=== PATIENT | female | born 2000 | race African-American/Black ===

== ENCOUNTER 2021-11-29 08:36 | Outpatient (CLI) | payer OTHER ==
[2021-11-29 19:08] LABS: SARS-CoV-2 PCR by NAA Not Detected (NotDetected)
== END 2021-11-29 08:37 | disposition home or self-care (01) ==
LOC: CSHLAB 08:36
PROVIDERS: ATTEND Family Medicine
DX: Z20.822 Contact with and (suspected) exposure to COVID-19 (principal)
CPT/HCPCS: U0003; U0005

== ENCOUNTER 2021-12-03 13:23 | Inpatient (IN) | payer OTHER ==
[2021-12-04 00:24] VITALS: BMI 32.4
[2021-12-04] MEDS ORDERED: Misoprostol 200 MCG TAB PR PRN (00:58)
[2021-12-04] MEDS ORDERED: hydrALAZINE 20 MG/ML VIAL SLOW IVP PRN (00:58)
[2021-12-04] MEDS ORDERED: Lidocaine 1% (PF) 30 ML VIAL SC PRN (00:58)
[2021-12-04] MEDS ORDERED: Ondansetron PF 4 MG/2 ML Vial IVP PRN (00:58)
[2021-12-04] MEDS ORDERED: Diphenoxylate HCl/Atropine Tablet PO PRN (00:58)
[2021-12-04] MEDS ORDERED: Promethazine HCl 25 MG/ML VIAL IM PRN (00:58)
[2021-12-04] MEDS ORDERED: Carboprost 250 MCG/ML AMP IM PRN (00:58)
[2021-12-04] MEDS ORDERED: Methylergonovine 0.2 MG/ML VIAL IM PRN (00:58)
[2021-12-04] MEDS ORDERED: Ibuprofen 800 MG TAB PO PRN (00:58)
[2021-12-04] MEDS ORDERED: NS w/ Oxytocin 30 units 500 ML IV SCH (01:00)
[2021-12-04 01:55] LABS: Hemoglobin 12.2 g/dL (12.0-15.5); Mean Corpuscular HGB CONC 33.1 g/dL (32.0-36.0); Mean Corpuscular Hemoglobin 29.4 pg (27.0-33.0); Mean Corpuscular Volume 88.9 fl (81.6-98.3); Mean Platelet Volume 12.2 fl (7.4-10.4); Platelet Count 199 10x3/uL (150-450); RBC Distribution Width 14.6 % (11.5-14.5); Red Blood Cell (RBC) Count 4.15 10x6/uL (3.90-5.03); White Blood Cell (WBC) Count 12.4 10x3/uL (3.5-10.5)
[2021-12-04 02:17] LABS: Hep B Surf Ag Non-Reactive S/CO (NonReactive)
[2021-12-04] MEDS: Misoprostol 100 MCG TAB VAG SCH ×3 (02:21→10:55)
[2021-12-04 02:24] LABS: HBSAg Index 0.23 S/CO (0-0.99)
[2021-12-04 02:48] LABS: Syphilis Antibody Nonreactive (Nonreactive); Syphilis Antibody Index 0.19 S/CO (<1.00 Non-Reactive)
[2021-12-04] MEDS: NS w/ Oxytocin 30 units 500 ML IV SCH (16:17)
[2021-12-05] MEDS: Misoprostol 100 MCG TAB VAG SCH (11:06)
[2021-12-05] MEDS: Lactated Ringer's 1,000 ML IV SCH (19:27)
[2021-12-05] MEDS ORDERED: Butorphanol Tartrate 1 MG/ML VIAL SLOW IVP PRN (20:22)
[2021-12-05] MEDS: NS w/ Oxytocin 30 units 500 ML IV SCH (21:35)
[2021-12-06] MEDS: Lactated Ringer's 1,000 ML IV SCH ×4 (07:17→14:40)
[2021-12-06] MEDS ORDERED: ceFAZolin 2 GM/Dextrose 50 ML IVPB ONE (07:59)
[2021-12-06] MEDS ORDERED: Famotidine/PF 20 mg/2ml Vial SLOW IVP PRN (08:38)
[2021-12-06] MEDS ORDERED: Bicitra 30 ML UDCUP PO PRN (08:38)
[2021-12-06] MEDS ORDERED: ceFAZolin 2 GM/Dextrose 50 ML 2 GM in Premix Bag 1 BAG IVPB SCH (08:45)
[2021-12-06] MEDS ORDERED: ePHEDrine Sulfate 50 MG/10 ML VIAL ONE (09:22)
[2021-12-06] MEDS ORDERED: Morphine PF 10 MG/10 ML VIAL ONE (09:22)
[2021-12-06] MEDS ORDERED: PROPOFOL 20 ML ONE (09:23)
[2021-12-06] MEDS ORDERED: Succinylcholine 200 MG/10 ml SYRINGE FS ONE (09:23)
[2021-12-06] MEDS ORDERED: Oxytocin 10 UNITS/ML VIAL ONE ×2 (09:23→10:41)
[2021-12-06] MEDS ORDERED: Phenylephrine 10 MG/ML VIAL ONE (09:23)
[2021-12-06] MEDS ORDERED: Dexamethasone 4 mg/ml Vial ONE (09:23)
[2021-12-06] MEDS ORDERED: Ondansetron PF 4 MG/2 ML Vial ONE (09:23)
[2021-12-06] MEDS ORDERED: Ketorolac Tromethamine 30 MG/ML VIAL ONE (09:23)
[2021-12-06] MEDS ORDERED: Fentanyl 250 MCG/5 ML VIAL ONE (09:24)
[2021-12-06] MEDS ORDERED: Ondansetron HCl/PF 4 MG/2 ML Vial IVP PRN ×3 (11:12→14:48)
[2021-12-06] MEDS ORDERED: Meperidine HCl/PF 25 MG/ML VIAL SLOW IVP PRN ×2 (11:12→14:48)
[2021-12-06] MEDS ORDERED: Promethazine HCl 25 MG/ML VIAL IVPB PRN (11:12)
[2021-12-06] MEDS ORDERED: Promethazine HCl 25 MG/ML VIAL IM PRN ×2 (11:12→16:38)
[2021-12-06] MEDS ORDERED: Fentanyl 100 MCG/2 ML VIAL SLOW IVP PRN ×2 (11:12→14:48)
[2021-12-06] MEDS ORDERED: Ketorolac Tromethamine 30 MG/ML VIAL IVP SCH ×2 (11:15→15:00)
[2021-12-06] MEDS ORDERED: Bisacodyl 10 MG SUPP PR PRN (14:11)
[2021-12-06] MEDS ORDERED: Ondansetron PF 4 MG/2 ML Vial IVP PRN ×2 (14:11→16:38)
[2021-12-06] MEDS ORDERED: HYDROcodone/Acetaminophen 5/325 mg Tablet PO PRN ×2 (14:11)
[2021-12-06] MEDS ORDERED: Simethicone Chewable 80 MG TAB PO PRN (14:11)
[2021-12-06] MEDS ORDERED: Lanolin Ointment 7 GM TUBE TOP PRN (14:11)
[2021-12-06] MEDS ORDERED: Boostrix 0.5 ML (Tdap) VIAL IM ONE (14:11)
[2021-12-06] MEDS ORDERED: NS w/ Oxytocin 30 units 500 ML IV SCH (14:11)
[2021-12-06] MEDS ORDERED: hydrALAZINE 20 MG/ML VIAL SLOW IVP PRN (14:11)
[2021-12-06] MEDS ORDERED: Ibuprofen 800 MG TAB PO SCH (14:30)
[2021-12-06] MEDS: Misoprostol 100 MCG TAB VAG SCH ×2 (14:38→14:39)
[2021-12-06] MEDS ORDERED: Naloxone HCl 0.4 mg/ml Vial IV PRN (16:38)
[2021-12-06] MEDS ORDERED: diphenhydrAMINE 50 MG/ML VIAL IVP PRN (16:38)
[2021-12-06] MEDS ORDERED: Promethazine HCl 25 MG SUPP PR PRN (16:38)
[2021-12-06] MEDS ORDERED: Naloxone HCl 0.4 mg/ml Vial IVP PRN ×2 (16:38)
[2021-12-06] MEDS ORDERED: Hydrocerin (Eucerin) Cream 120 gm Jar TOP PRN (16:38)
[2021-12-06] MEDS ORDERED: Communication Order-Pharmacy FS SCH (16:45)
[2021-12-06] MEDS: Ketorolac Tromethamine 30 MG/ML VIAL IVP PRN (18:20)
[2021-12-06] MEDS: Docusate 100 MG CAP PO SCH (21:43)
[2021-12-06] MEDS: Ferrous Sulfate 325 MG TAB PO SCH (23:15)
[2021-12-07] MEDS: Ketorolac Tromethamine 30 MG/ML VIAL IVP PRN ×2 (00:21→08:47)
[2021-12-07 04:42] LABS: Hemoglobin 9.2 g/dL (12.0-15.5); Mean Corpuscular HGB CONC 33.1 g/dL (32.0-36.0); Mean Corpuscular Hemoglobin 29.8 pg (27.0-33.0); Mean Platelet Volume 11.6 fl (7.4-10.4); Platelet Count 158 10x3/uL (150-450); RBC Distribution Width 14.2 % (11.5-14.5); Red Blood Cell (RBC) Count 3.09 10x6/uL (3.90-5.03); White Blood Cell (WBC) Count 12.6 10x3/uL (3.5-10.5)
[2021-12-07] MEDS ORDERED: HYDROcodone/Acetaminophen 5/325 mg Tablet PO PRN ×2 (04:45)
[2021-12-07] MEDS: Prenatal Vitamin 1 TAB PO SCH (08:31)
[2021-12-07] MEDS: Ferrous Sulfate 325 MG TAB PO SCH ×2 (08:31→21:22)
[2021-12-07] MEDS: Docusate 100 MG CAP PO SCH ×2 (08:31→21:19)
[2021-12-07] MEDS: Ibuprofen 800 MG TAB PO SCH (21:19)
[2021-12-08] MEDS: Ibuprofen 800 MG TAB PO SCH (06:02)
[2021-12-08] MEDS: Docusate 100 MG CAP PO SCH (09:26)
[2021-12-08] MEDS: Prenatal Vitamin 1 TAB PO SCH (09:26)
[2021-12-08] MEDS: Ferrous Sulfate 325 MG TAB PO SCH (09:26)
[2021-12-08 09:58] VITALS: BP 131/71; TEMP 97.7
== END 2021-12-08 12:43 | disposition home or self-care (01) | DRG 788 ==
LOC: UNDOADMIN 16:25 → CSHLD 16:25 → UNDOADMIN 23:59 → CSHLD 23:59 → CSHPP 12-06 13:00
PROVIDERS: ADMIT Family Medicine; ATTEND Family Medicine
PROC: 10D00Z0 Extraction of Products of Conception, High, Open Approach (ICD-10-PCS; principal; 2021-12-06)
PROC: 10907ZC Drainage of Amniotic Fluid, Therapeutic from Products of Conception, Via Natural or Artificial Opening (ICD-10-PCS; 2021-12-06)
PROC: 3E0P7VZ Introduction of Hormone into Female Reproductive, Via Natural or Artificial Opening (ICD-10-PCS; 2021-12-06)
PROC: 3E033VJ Introduction of Other Hormone into Peripheral Vein, Percutaneous Approach (ICD-10-PCS; 2021-12-06)
DX: O36.19 Maternal care for other isoimmunization (principal); O76 Abnormality in fetal heart rate and rhythm complicating labor and delivery; Z20.822 Contact with and (suspected) exposure to COVID-19; O61.0 Failed medical induction of labor; Z3A.38 38 weeks gestation of pregnancy; Z37.0 Single live birth
CPT/HCPCS: 36415; 51702; 85027; 86780; 86850; 86870; 86900; 86901; 87340; 90715; J0595; J0690; J1100; J1885; J2274; J2370; J2405; J2590; J2704; J3010; J7120; S0028